=== PATIENT | female | born 1975 | race Caucasian/White ===

== ENCOUNTER 2018-01-14 18:52 | Inpatient (IN) | payer OTHER ==
[~2018-01-14] VITALS: Ht 154.9 cm; Wt 75.1 kg
[~2018-01-14 18:52] MED LIST: AMLODIPINE BESYL5 M1 PO; ASPIR 8181 MG PO; ATENOLOL50 MG PO; ATORVASTATIN CA20 M1 GT; ZITHROMAX Z-PA250 M2 PO
[2018-01-14 18:56] VITALS: Ht 154.9 cm; Wt 75.1 kg
[2018-01-14 19:53] LABS: BASOPHIL % 0.3 % (0-2); PLATELET COUNT 241 x10^3mcL (130-400); RED CELL DISTRIBUTION WIDTH 14.5 % (11.5-14.5)
[2018-01-14 20:19] LABS: AMPHETAMINE QUAL UR NONE DETECTED (NEG <=1000)
[2018-01-14 21:05] LABS: CALCIUM 9.3 mg/dL (8.5-10.1); CARBON DIOXIDE 27.3 mmol/L (21-32); CHLORIDE SERUM 105 mmol/L (98-107); CREATININE SERUM 0.7 mg/dL (0.6-1.0); GFR1 > 60 mL/min; GLUCOSE SERUM 97 mg/dL (74-106); POTASSIUM SERUM 4.2 mmol/L (3.5-5.1); SODIUM SERUM 139 mmol/L (136-145)
[2018-01-14 21:09] LABS: ALBUMIN 4.1 g/dL (3.4-5.0); ALKALINE PHOSPHATASE 68 U/L (46-116); ALT/SGPT 88 U/L (14-59); AST/SGOT 37 U/L (15-37); BILIRUBIN TOTAL 0.2 mg/dL (0.20-1.00); TOTAL PROTEIN, SERUM 7.5 g/dL (6.4-8.2)
[2018-01-14 21:48] LABS: microscopic required? YES; urine erythrocyte TRACE (NEGATIVE)
[2018-01-14 21:54] VITALS: BP 139/72
[2018-01-14 21:55] LABS: PHOSPHOROUS 4.1 mg/dL (2.5-4.9)
[2018-01-14 21:56] LABS: CHOLESTEROL/HDL RATIO 4.3
[2018-01-14 22:03] LABS: T3 TOTAL 1.29 ng/mL
[2018-01-14 22:06] LABS: FREE T4 0.98 ng/dL (0.76-1.46); FREE THYROXINE INDEX 2.4 ug/dL (1.4-4.5); T4(THYROXINE) 6.9 ug/dL (4.7-13.3)
[2018-01-15 05:00] VITALS: BP 189/77
[2018-01-15 06:18] VITALS: BP 109/55
[2018-01-15 06:22] LABS: BASOPHIL % 0.4 % (0-2); PLATELET COUNT 204 x10^3mcL (130-400)
[2018-01-15 06:52] LABS: CALCIUM 8.3 mg/dL (8.5-10.1); CARBON DIOXIDE 23.6 mmol/L (21-32); CHLORIDE SERUM 108 mmol/L (98-107); CREATININE SERUM 0.6 mg/dL (0.6-1.0); GFR1 > 60 mL/min; GLUCOSE SERUM 92 mg/dL (74-106); PHOSPHOROUS 3.7 mg/dL (2.5-4.9); SODIUM SERUM 139 mmol/L (136-145)
[2018-01-15 14:50] VITALS: BP 100/53
[2018-01-15] MEDS ORDERED: LIPI10 PO (15:37)
[2018-01-15] MEDS ORDERED: ISO10 PO (15:37)
[2018-01-15 16:05] VITALS: BP 100/53
== END 2018-01-15 17:06 | disposition home or self-care (01) | DRG 203 ==
LOC: ED 18:52 → DU 21:12
PROVIDERS: Emergency Medicine; Family Medicine
DX: M94.0 Chondrocostal junction syndrome [Tietze] (principal); N17.0 Acute kidney failure with tubular necrosis; I10 Essential (primary) hypertension; R73.03 Prediabetes; K76.0 Fatty (change of) liver, not elsewhere classified; D64.9 Anemia, unspecified; Z90.710 Acquired absence of both cervix and uterus; Z88.5 Allergy status to narcotic agent; Z82.49 Family history of ischemic heart disease and other diseases of the circulatory system; Z87.891 Personal history of nicotine dependence
CPT/HCPCS: 83880; 84439; 85378; J1885; J7030; Q0092

== ENCOUNTER 2019-06-23 19:32 | Emergency (ER) | payer OTHER ==
[~2019-06-23] VITALS: Ht 154.9 cm; Wt 70.0 kg
[~2019-06-23 19:32] MED LIST changes: +ISO10 PO; +LIPI10 PO
[2019-06-23 19:49] VITALS: Ht 154.9 cm; Wt 70.0 kg
[2019-06-23 21:56] VITALS: BP 118/60
== END 2019-06-23 21:56 | disposition home or self-care (01) ==
LOC: ED 19:32
DX: L03.116 Cellulitis of left lower limb (principal); I10 Essential (primary) hypertension; Z90.710 Acquired absence of both cervix and uterus; Z88.5 Allergy status to narcotic agent
CPT/HCPCS: J0696

== ENCOUNTER 2019-06-25 12:14 | Emergency (ER) | payer OTHER ==
[~2019-06-25] VITALS: Ht 154.9 cm; Wt 70.3 kg
[2019-06-25 12:37] VITALS: Ht 154.9 cm; Wt 70.3 kg
[2019-06-25 14:18] VITALS: BP 107/50
== END 2019-06-25 14:18 | disposition home or self-care (01) ==
LOC: ED 12:14
DX: L03.116 Cellulitis of left lower limb (principal); L03.317 Cellulitis of buttock; I10 Essential (primary) hypertension; Z90.710 Acquired absence of both cervix and uterus; Z88.5 Allergy status to narcotic agent
CPT/HCPCS: J0696

== ENCOUNTER 2019-11-18 18:59 | Inpatient (IN) | payer OTHER ==
[~2019-11-18] VITALS: Ht 154.9 cm; Wt 72.3 kg
[2019-11-18 19:11] VITALS: Ht 154.9 cm; Wt 72.3 kg
--- NOTE | 2019-11-18 19:21 | NUR ---
PT CAME TO ED CO CHEST PAIN. PT STS THE PAIN STARTED TODAY AT 1630. PT STS SHE HAS HX OF STABLE ANGINA, PT STS ABOUT 30 MINUTES PRIOR TO ARRIVAL SHE TOOK AT HOME NITRO, PT DENIES RELIEF FROM THE NITRO. PT STS THE CHEST PAIN SHE IS EXPERIENCING NOW IS DIFFERENT THAN USUAL. PT STS IT FEELS LIKE SOMETHING IS ON HER CHEST. PT STS THE PAIN IS NON RADIATING. PT STS SHE IS EXPERIENCING DIZZINESS. PT AMBULATED TO T1 WITH STEADY. PT IS TALKING IN COMPLETE SENTENCES. NO S/S OF DISTRESS. RESP E/U. AT BEDSIDE. WILL CONTINUE TO MONITOR.
[2019-11-18 19:54] LABS: BASOPHIL % 0.7 % (0-2); PLATELET COUNT 234 x10^3mcL (130-400); RED CELL DISTRIBUTION WIDTH 13.7 % (11.5-14.5)
[2019-11-18 20:15] LABS: CALCIUM 9.1 mg/dL (8.5-10.1); CARBON DIOXIDE 27.4 mmol/L (21-32); CHLORIDE SERUM 105 mmol/L (98-107); CREATININE SERUM 0.8 mg/dL (0.6-1.0); GFR1 > 60 mL/min; GLUCOSE SERUM 101 mg/dL (74-106); SODIUM SERUM 142 mmol/L (136-145)
[2019-11-18 20:21] LABS: ALBUMIN 3.9 g/dL (3.4-5.0); ALKALINE PHOSPHATASE 61 U/L (46-116); ALT/SGPT 29 U/L (14-59); AST/SGOT 19 U/L (15-37); BILIRUBIN TOTAL 0.15 mg/dL (0.20-1.00); TOTAL PROTEIN, SERUM 7.3 g/dL (6.4-8.2)
--- NOTE | 2019-11-18 20:54 | NUR ---
PT LAYING ON GURNEY IN POSITION OF COMFORT. PT STS THAT HER PAIN IS COMING AND GOING BUT IS FEELING BETTER. PROVIDED PT W/BLANKET FOR COMFORT. NO S/S OF DISTRESS. RESP E/U. AT BEDSIDE. WILL CONTINUE TO MONITOR.
--- NOTE | 2019-11-18 22:12 | NUR ---
PT LAYING ON GURNEY IN POSITION OF COMFORT. PT MADE AWARE WE ARE WAITING ON A BED. NO S/S OF DISTRESS. RESP E/U. WILL CONTINUE TO MONITOR.
--- NOTE | 2019-11-18 22:25 | NUR ---
REPORT TO GIVEN TO ZARA RUIZ TO ASSUME CARE OF PT
--- NOTE | 2019-11-18 22:31 | NUR ---
PT TRANSFERRED TO TELE FLOOR ACCOMPANIED BY NURSE AND EMT. PT CONNECTED TO MONITOR DURING TRANSFER. NO S/S OF DISTRESS. RESP E/U. [facility] AT [facility] TO ASS[facility] C[facility] OF PT.
[2019-11-18 22:58] LABS: MAGNESIUM 1.9 mg/dL (1.8-2.4)
--- NOTE | 2019-11-18 23:00 | NUR ---
RECEIVED PT FROM ED VIA COMFORT ACCOMPANIED BY RN AND . PT AA&O X4. NO SOB ON ROOOM AIR. BREATHING EVEN AND UNLABORED. PT STATES CHEST PAIN 4/10, TOLERABLE AT THIS TIME. NITRO PATCH GIVEN IN ED. NO C/O N/V/ABD PAIN. AMBULATORY. IV TO LAC, INTACT. SAFETY MEASURES IN PLACE. INSTRUCTED PT TO USE THE CALL LIGHT FOR ASSISTANCE. CALL LIGHT WITHIN REACH.
[2019-11-18 23:24] LABS: CHOLESTEROL/HDL RATIO 5.7
[2019-11-18 23:45] VITALS: BP 107/56
--- NOTE | 2019-11-19 03:44 | NUR ---
TYLENOL GIVEN FOR HEADACHE.
[2019-11-19 05:09] VITALS: BP 97/48
--- NOTE | 2019-11-19 06:44 | NUR ---
PT RESTED IN INTERVALS DURING SHIFT. NO SOB ON ROOM AIR. NO C/O CHEST PAIN AT THIS TIME. NO DISTRESS NOTED. SAFETY MEASURES MAINTAINED. CALL LIGHT WITHIN REACH. WILL ENDORSE CARE TO DAY SHIFT RN.
[2019-11-19 06:51] LABS: BASOPHIL % 0.2 % (0-2); PLATELET COUNT 205 x10^3mcL (130-400)
[2019-11-19 06:58] LABS: CALCIUM 8.5 mg/dL (8.5-10.1); CARBON DIOXIDE 25.7 mmol/L (21-32); CHLORIDE SERUM 107 mmol/L (98-107); CREATININE SERUM 0.6 mg/dL (0.6-1.0); GFR1 > 60 mL/min; GLUCOSE SERUM 95 mg/dL (74-106); SODIUM SERUM 143 mmol/L (136-145)
--- NOTE | 2019-11-19 08:00 | NUR ---
SHIFT ASSESSMENT DONE. PATIENT A/A/OX4; TELE#14, SB; HR = 56; NO C/O CHEST PAIN NOW. BREATHING SOUND CLEAR WILNER. O2 SAT 96% ON RA. AMBULATORY. IVHL'D TO LAC.TOLERATED CARDIAC DIET BREAKFAST. BRP SELFLY. CALL LIGHT IN REACH.
[2019-11-19 08:30] VITALS: BP 121/66
--- NOTE | 2019-11-19 10:00 | NUR ---
DR. LANDIN CAME TO SEE PATIENT. NEW ORDER WRITTEN.
[2019-11-19 10:28] LABS: microscopic required? NO
[2019-11-19 10:58] LABS: UA SPECIFIC GRAVITY 1.025 (1.005-1.035); urine erythrocyte NEGATIVE (NEGATIVE)
[2019-11-19 11:59] VITALS: BP 106/52
--- NOTE | 2019-11-19 14:08 | NUR ---
DR. VICKERS CAME TO SEE PATIENT.
[2019-11-19 16:12] VITALS: BP 101/44
--- NOTE | 2019-11-19 17:02 | NUR ---
ECHOCARDIOGRAM COMPLETED
--- NOTE | 2019-11-19 19:00 | NUR ---
NO C/O CHEST PAIN THIS SHIFT. C/O TELE MONITOR LEADS PATCH SITES ITCHING. PATCHES REMOVED, NO REDNESS/SWELLING TO SITES. NEW PATCHS APPLIED. ENDORSED CARE TO NOC NURSE.
--- NOTE | 2019-11-19 20:15 | NUR ---
RECEIVED PATIENT IN BED AWAKE, ALERT AND ORIENTED WITH NO C/O CHEST DISCOMFORT NOTED AT THIS TIME. BREATHING EASY AND NONLABOR SATTING AT 98% RA. TELE#14 SB ON MONITOR. ABDOMEN SOFT AND NON TENDER WITH ACTIVE BS. IV TO LAC HEPLOCK FLUSHED WITH NS. WILL CONTINUE TO MONITOR.
[2019-11-19 20:53] VITALS: BP 98/51
--- NOTE | 2019-11-19 23:18 | NUR ---
APPEAR TO BE SLEEPING THIS TIME AFTER PHENERGAN 12.5 MG IVP WAS GIVEN. WILL CONTINU TO MONITOR.
[2019-11-20 05:16] VITALS: BP 105/48
--- NOTE | 2019-11-20 05:25 | NUR ---
DENIES PAIN AND DISCOMFORT THE ENTIRE SHIFT. ALL NEEDS ATTENDED. NO SIGNIFICANT CHANGES IN PATIENT CONDITION NOTED.
--- NOTE | 2019-11-20 07:30 | NUR ---
PT IS AAOX4. TELE [address] READING SINUS ELSIE. PT DENIES C/P, PRESSURE AND PALPITATIONS. IV CATH TO LAC PATENT, WNL. RESP EVEN AND UNLABORED PT DENIES PAIN, CALL LIGHT WITHIN REACH. BED IN LOWEST POSITION.
[2019-11-20 08:36] VITALS: BP 101/55
--- NOTE | 2019-11-20 09:04 | NUR ---
NORVASC HELD DUE TO HR AT 54 BPM. B/P 101/55 (71). OTHER SCHEDULED MEDS GIVEN AND TOLERATED WELL. DENIES PAIN AT THIS TIME. CALL LIGHT WITHIN REACH.
[2019-11-20 12:26] VITALS: BP 101/55
--- NOTE | 2019-11-20 13:15 | NUR ---
PT DISCHARGED TO HOME IN NO DISTRESS. DISCHARGE INSTRUCTIONS REVIEWED. ALL FORMS SIGNED. RX GIVEN TO PT. ALL QUESTIONS ANSWERED. IV CATH TO LAC REMOVED INTACT. SITE WNL. COVERED WITH GAUZE AND BANDAID. TELE 14 REMOVED AND RETURNED TO INVOICE CLASSIFICATION CLERK. VS: T 97.2F, HR 61, RR 18, B/P 101/55, O2 SAT AT 98% ON R/A. PT DENIES PAIN AND DISCOMFORT UPON DISCHARGED. PT WALKED TO DISCHARGE OFFICE ACCOMPANIED BY AND GLASS RIBBON MACHINE OPERATOR ASSISTANT. ALL PERSONAL BELONGINGS TAKEN WITH PT.
== END 2019-11-20 13:15 | disposition home or self-care (01) | DRG 198 ==
LOC: ED 18:59 → DU 21:03
PROVIDERS: Emergency Medicine; ADMIT Internal Medicine
DX: I25.111 Atherosclerotic heart disease of native coronary artery with angina pectoris with documented spasm (principal); I10 Essential (primary) hypertension; Z68.30 Body mass index [BMI] 30.0-30.9, adult
CPT/HCPCS: 83880; 85378; G0378; J2550; Q0092